=== PATIENT | female | born 1995 | race Caucasian/White ===

== ENCOUNTER 2019-08-09 02:35 | Emergency (ER) | payer SELFPAY ==
[~2019-08-09] VITALS: Ht 170.2 cm; Wt 108.4 kg
[2019-08-09 02:43] VITALS: Ht 170.2 cm; Wt 108.4 kg
[2019-08-09 03:55] LABS: CALCIUM 9.6 mg/dL (8.5-10.1); CARBON DIOXIDE 27.1 mmol/L (21-32); CHLORIDE SERUM 102 mmol/L (98-107); CREATININE SERUM 0.7 mg/dL (0.6-1.0); GFR1 > 60 mL/min; GLUCOSE SERUM 85 mg/dL (74-106); POTASSIUM SERUM 3.3 mmol/L (3.5-5.1); SODIUM SERUM 139 mmol/L (136-145)
[2019-08-09 03:59] LABS: ALBUMIN 3.9 g/dL (3.4-5.0); ALKALINE PHOSPHATASE 91 U/L (46-116); ALT/SGPT 21 U/L (14-59); AST/SGOT 15 U/L (15-37); BILIRUBIN TOTAL 0.4 mg/dL (0.20-1.00); HDL CHOLESTEROL 45 mg/dL (40-60); LIPASE 106 IU/L (73-393); TRIGLYCERIDES 151 mg/dL (<150)
[2019-08-09 04:00] LABS: CHOLESTEROL 210 mg/dL (<200); CHOLESTEROL/HDL RATIO 4.7
[2019-08-09 04:00] LABS: AMPHETAMINE QUAL UR NONE DETECTED (See below)
[2019-08-09 04:03] LABS: BASOPHIL % 0.8 % (0-2); PLATELET COUNT 285 x10^3mcL (130-400); RED CELL DISTRIBUTION WIDTH 12.2 % (11.5-14.5)
[2019-08-09 04:07] LABS: T3 TOTAL 1.43 ng/mL
[2019-08-09 04:08] LABS: FREE T4 1.28 ng/dL (0.76-1.46); FREE THYROXINE INDEX 2.7 ug/dL (1.4-4.5); T4(THYROXINE) 8.3 ug/dL (4.7-13.3)
[2019-08-09 04:20] VITALS: BP 113/63
== END 2019-08-09 04:20 | disposition home or self-care (01) ==
LOC: ED 02:35
PROVIDERS: Specialist
DX: F43.9 Reaction to severe stress, unspecified (principal); R00.2 Palpitations
CPT/HCPCS: 36415; 84439; Q0092